=== PATIENT | female | born 1955 | race Caucasian/White ===

== ENCOUNTER 2016-08-15 08:34 | Outpatient (CLI) | payer OTHER ==
--- NOTE | 2016-08-15 09:21 | DIAGNOSTIC IMAGING REPORT ---
PROCEDURE: US ABDOMEN ULTRASOUND-COMPLETE INDICATION: PAIN OF UPPER ABDOMEN TECHNIQUE: Lundberg scale and color Doppler sonographic images of the abdomen were obtained. COMPARISON: None. FINDINGS: Liver, spleen, pancreas and gallbladder are normal. No gallstones. Normal CBD measures 5.5 mm. Negative Bianchi's sign. Aorta and IVC are patent. Normal hepatopetal flow. Normal kidneys. Right kidney measures 9.3 cm and left kidney 9 cm. IMPRESSION: 1. Negative abdominal ultrasound
== END 2016-08-15 23:00 ==
LOC: US SRH 08:34
DX: R10.9 Unspecified abdominal pain (principal)